=== PATIENT | female | born 1935 | race Caucasian/White ===

== ENCOUNTER 2017-02-10 17:24 | Inpatient (IN) | payer MEDICARE, BC ==
--- NOTE | 2017-02-10 20:01 | ED Physician Documentation ---
PD HPI SYNCOPE - Stated complaint Stated Complaint: DIZZINESS.LEG WEAKNESS - Chief complaint Chief Complaint: General - History obtained from History obtained from: Patient - History of Present Illness Witnessed: Unwitnessed Timing - onset: Yesterday (she got up from sitting in chair and says that it felt like her "legs gave out", feeling like both legs, but left one felt weaker. Struck left chest on furniture, with bruising there. Since then has feeling of "listing" to the left as she walks, and has feeling of left cheek numbness. No noted focal weakness per se. Did not strike head.) Duration: Other (she feels that her legs gave out (both versus left) and she fell. Does not feel that she passed out. Did not feel lightheaded.) Preceding symptoms: No: Headache, Chest pain, Palpitations, Abdominal pain, Nausea / vomiting, Light headed Associated symptoms: Chest pain (struck left lateral chest when fell, with pain there and bruising.). No: Headache, Palpitations Contributing factors: Just stood up. No: Recent med change Injury occurred: Fell (struck left chest) Similar symptoms before: Has not had sx before Recently seen: Not recently seen Review of Systems Constitutional: reports: Fever, Chills Eyes: reports: Decreased vision (from her prior cataract surgery, no acute process.). denies: Loss of vision Nose: denies: Rhinorrhea / runny nose, Congestion Throat: denies: Sore throat Cardiac: denies: Chest pain / pressure, Palpitations, Pedal edema, Calf pain Respiratory: denies: Dyspnea, Cough GI: denies: Abdominal Pain, Nausea, Vomiting, Diarrhea, Bloody / black stool Skin: denies: Rash, Lesions Musculoskeletal: denies: Neck pain, Back pain Neurologic: reports: Other (off balance with walking). denies: Focal weakness, Difficulty speaking, Altered mental status, Headache, Head injury PD PAST MEDICAL HISTORY - Past Medical History Past Medical History: Yes Cardiovascular: None Respiratory: None Neuro: None Endocrine/Autoimmune: None GI: Chronic constipation : None HEENT: None Psych: None, Depression, Anxiety Musculoskeletal: Chronic back pain Derm: None - Past Surgical History Past Surgical History: Yes General: Colonoscopy HEENT: Cataracts - Present Medications Home Medications: Ambulatory Orders Medication Instructions Recorded Confirmed Calcium Citrate/Magnesium/D3 1 each PO DAILY 04/15/16 04/16/16 [Calcium Citrate Chewable Wafer] Cyanocobalamin (Vitamin B-12) 500 mcg PO DAILY 04/15/16 04/16/16 [Vitamin B-12] - Allergies Allergies/Adverse Reactions: Allergies Allergy/AdvReac Type Severity Reaction Status Date / Time No Known Drug Allergies Allergy Verified 02/10/17 17:37 - Social History Does the pt smoke?: No Smoking Status: Never smoker Does the pt drink ETOH?: No Does the pt have substance abuse?: No - Family History Family history: denies: CVA, Cerebral aneurysm - Immunizations Immunizations are current?: Yes - POLST Patient has POLST: No PD ED PE NORMAL - Vitals Vital signs reviewed: Yes - General General: Alert and oriented X 3, No acute distress, Well developed/nourished - HEENT HEENT: PERRL, EOMI, Moist mucous membranes, Pharynx benign - Neck Neck: Supple, no meningeal sign, No adenopathy, No JVD, No bruit - Cardiac Cardiac: RRR, No murmur - Respiratory Respiratory: Clear bilaterally - Abdomen Abdomen: Soft, Non tender - Female Female : Deferred - Rectal Rectal: Deferred - Back Back: No CVA TTP - Derm Derm: Normal color, Warm and dry - Extremities Extremities: Normal ROM s pain, No edema, No calf tenderness / cord - Neuro Neuro: Alert and oriented X 3, human resources benefits coordinator 2-12 intact, No motor deficit, No sensory deficit, Normal speech - Psych Psych: Normal mood, Normal affect PD ED PE EXPANDED - Neuro Neuro: CNII-XII intact, PERRL, Normal speech. No: Weakness, Abnormal sensation , Aphasia Results - Vitals Vitals: Vital Signs - 24 hr 02/10/17 02/10/17 02/10/17 17:32 18:55 20:00 Temperature 36.6 C 36.8 C 36.5 C Heart Rate 90 79 71 Respiratory 18 16 15 Rate Blood Pressure 190/78 H 184/65 H 164/64 H O2 Saturation 98 97 99 02/10/17 02/10/17 21:12 22:34 Temperature 36.9 C 36.8 C Heart Rate 77 72 Respiratory 15 15 Rate Blood Pressure 189/72 H 193/63 H O2 Saturation 97 97 Oxygen O2 Source Room air - EKG (time done) 22:03 Rate: Rate (enter#) (73) Rhythm: NSR [place]: Normal Intervals: Normal CA QRS: Normal Ischemia: Normal ST segments. No: ST elevation c/w ischemia, ST depression Compare to prior EKG: Old EKG unavailable - Labs Labs: Laboratory Tests 02/10/17 02/10/17 02/10/17 20:39 20:39 20:39 WBC 4.6 L RBC 4.48 Hgb 13.9 Hct 41.1 MCV 91.7 MCH 30.9 MCHC 33.7 RDW 13.5 Plt Count 130 MPV 9.4 Neut # 2.5 Lymph # 1.4 L Pettis # 0.5 Eos # 0.1 Baso # 0.0 Absolute Nucleated RBC 0.00 Nucleated RBCs 0.1 Sodium 138 Potassium 4.2 Chloride 104 Carbon Dioxide 25 Anion Gap 9.0 BUN 17 Creatinine 0.8 Estimated GFR (MDRD) 69 L Glucose 99 Calcium 9.6 Magnesium 2.2 Total Bilirubin 0.8 AST 25 ALT 14 Alkaline Phosphatase 57 Troponin I < 0.04 Total Protein 6.8 Albumin 3.8 Globulin 3.0 Albumin/Globulin Ratio 1.3 Lipase 28 - Rads (name of study) head CT Radiology: Prelim report reviewed (new small infarct right basal ganglia and anterior limb internal capsule. Possibly subacute/old.), EMP read contemporaneously ribs with chest Radiology: Prelim report reviewed (lungs normal. left 9th rib fracture) PD MEDICAL DECISION MAKING - ED course Complexity details: reviewed results (head CT showing new small infarcts that might be old. However her symptoms would be concerning for new infarct. MRI brain would be more definitive and new Dx of infarcts warrants carotid/ECHO studies. ), considered differential, d/w patient, d/w agricultural consultant (Hospitalist) Departure - Departure Disposition: 66 [facility] DC/Xfer Clinical Impression: Accidental fall Qualifiers: Encounter type: initial encounter Qualified Code(s): W19.XXXA - Unspecified fall, initial encounter Left rib fracture Qualifiers: Encounter type: initial encounter Rib fracture type: single rib Fracture type: closed Qualified Code(s): S22.32XA - Fracture of one rib, left side, initial encounter for closed fracture CVA (cerebral vascular accident) Qualifiers: CVA mechanism: unspecified Qualified Code(s): I63.9 - Cerebral infarction, unspecified Condition: Stable Record reviewed to determine appropriate education?: Yes
[2017-02-10] MEDS ORDERED: ACETAMINOPHEN 325 MG TABLET PO STA (20:29)
[2017-02-10] MEDS ORDERED: ACETAMINOPHEN 325 MG TABLET PO ONE (20:35)
[2017-02-10 20:46] LABS: EOSINOPHILS # (AUTO) 0.1 10^3/uL (0.0-0.7); EOSINOPHILS % (AUTO) 2.5 %; HCT - HEMATOCRIT 41.1 % (37.0-47.0); HGB - HEMOGLOBIN 13.9 g/dL (12.0-16.0); LYMPHOCYTES # (AUTO) 1.4 10^3/uL (1.5-3.5); LYMPHOCYTES % (AUTO) 29.8 %; MEAN CORPUSCULAR HEMOGLOBIN 30.9 pg (27.0-31.0); MEAN CORPUSCULAR HGB CONC 33.7 g/dL (32.0-36.0); MEAN CORPUSCULAR VOLUME 91.7 fL (81.0-99.0); MEAN PLATELET VOLUME 9.4 fL (7.9-10.8); MONOCYTES # (AUTO) 0.5 10^3/uL (0.0-1.0); NEUTROPHILS # (AUTO) 2.5 10^3/uL (1.5-6.6); NEUTROPHILS % (AUTO) 55.7 %; NUCLEATED RED BLOOD CELLS AUTO 0.1 /100WBC; RED BLOOD COUNT 4.48 10^6/uL (4.20-5.40); RED CELL DISTRIBUTION WIDTH 13.5 % (12.0-15.0); UNCORRECTED WHITE BLOOD COUNT 4.6 x10^3/uL; WHITE BLOOD COUNT 4.6 x10^3/uL (4.8-10.8)
[2017-02-10 21:00] LABS: ALBUMIN/GLOBULIN RATIO 1.3 (1.0-2.2); BILIRUBIN,TOTAL 0.8 mg/dL (0.2-1.0); CALCIUM 9.6 mg/dL (8.5-10.3); CREATININE 0.8 mg/dL (0.4-1.0); MAGNESIUM 2.2 mg/dL (1.7-2.8); POTASSIUM 4.2 mmol/L (3.5-5.0); TOTAL PROTEIN 6.8 g/dL (6.7-8.2)
--- NOTE | 2017-02-10 21:18 | XRAY Preliminary Report ---
Exam: XR Ribs w/PA Chest LT IMPRESSION: Left ninth rib fracture. [facility] IMPRESSION: Left ninth rib fracture. [facility] SITE ID: [id number]
--- NOTE | 2017-02-10 21:20 | XRAY Report ---
EXAM: LEFT RIB RADIOGRAPHY EXAM DATE: 02/10/2017 09:05 PM. CLINICAL HISTORY: Fall yesterday with left lower ribs bruising. COMPARISON: Chest dated 10/11/2012. TECHNIQUE: 1 view of the chest and 2 views of the ribs. FINDINGS: Bones: Minimally displaced anterior left ninth rib fracture. Osteopenia. Degenerative changes. Lungs: Clear. No effusion or pneumothorax. Mediastinum: Heart and mediastinal contours are unremarkable. Upper lobe vessels not distended. Other: Nonspecific bowel gas pattern. IMPRESSION: Left ninth rib fracture. [facility] Referring Provider Line: [phone] SITE ID: [id number]
--- NOTE | 2017-02-10 21:20 | CT Preliminary Report ---
Exam: CT Head W/O IMPRESSION: Chronic and senescent changes. New small infarcts at the right basal ganglia and anterior limb internal capsule, appear more chronic. [facility] SITE ID: [id number]
--- NOTE | 2017-02-10 21:23 | CT Report ---
EXAM: CT HEAD EXAM DATE: 02/10/2017 08:55 PM. CLINICAL HISTORY: Leg weakness with fall yesterday. COMPARISON: Head CT 10/11/2012. TECHNIQUE: Multiaxial CT images were obtained from the foramen magnum to the vertex. IV contrast: Non e. Reformats: Coronal. In accordance with CT protocol optimization, one or more of the following dose reduction techniques w ere utilized for this exam: automated exposure control, adjustment of mA and/or KV based on patient s ize, or use of iterative reconstructive technique. FINDINGS: Parenchyma: No intraparenchymal hemorrhage. No evidence of mass or midline shift. Vega-white differen tiation is distinct. New small infarcts at the right basal ganglia and anterior limb internal capsule , appear more chronic. Extraaxial Spaces: Normal for age. No subdural or epidural collections identified. Ventricles: The ventricles and cortical sulci are enlarged, consistent with age-related tissue loss. Sinuses: Imaged paranasal sinuses, orbits, and mastoids show no significant abnormality. Bones: No evidence of fracture or calvarial defect. Other: Diffuse chronic microangiopathic white matter changes are evident. IMPRESSION: Chronic and senescent changes. New small infarcts at the right basal ganglia and anterior limb internal capsule, appear more chronic. [facility] Referring Provider Line: [phone] SITE ID: [id number]
[2017-02-10] MEDS ORDERED: ASPIRIN CHEW 81 MG TABLET PO STA (21:51)
[2017-02-10] MEDS ORDERED: ASPIRIN CHEW 81 MG TABLET ONE (21:56)
[2017-02-10] MEDS ORDERED: SODIUM CHLORIDE FLUSH 0.9% 10 ML SYRINGE IVP PRN (23:41)
--- NOTE | 2017-02-11 02:17 | HISTORY & PHYSICAL EXAMINATION ---
DATE OF ADMISSION: 02/10/2017 CHIEF COMPLAINT: Dizziness and leg weakness. HISTORY OF PRESENT ILLNESS: This is an 81-year-old white female who is in very good health, she walks routinely. She only takes a multivitamin and vitamin D with calcium for medications. The patient was standing up from a chair and noticed that her "left leg gave out" which caused her to fall and she hit her left chest area in the left rib cage. She presented to the emergency room [facility] of continued weakness of the left side and numbness of the left face. She also experienced gait ch jocelynn, walking to the left since this happened to her. There was no syncope. She denies any palpitatio ns, chest pain, shortness of breath with this event or ever. She has no past cardiac history or neuro logical. MEDICATIONS AT HOME: As above. ALLERGIES: NONE. SOCIAL HISTORY: She is a nonsmoker, never smoked and drinks no alcohol. FAMILY HISTORY: Negative for diabetes or heart disease. REVIEW OF SYSTEMS: Only as above and negative in all other organ systems. PHYSICAL EXAMINATION: GENERAL: Reveals a white female who is in no distress. VITAL SIGNS: Blood pressure 164/64 and as high as 193/63, pulse is in the 70s in sinus rhythm. She is afebrile. HEENT: Unremarkable. NECK: Shows no JVD or carotid bruits. No thyromegaly. No lymphadenopathy. CHEST: Clear. HEART: Sounds are normal. No murmurs. No heave or gallop. ABDOMEN: Soft with decreased bowel sounds, nontender. EXTREMITIES: No clubbing, cyanosis, or edema. NEUROLOGIC: Shows cranial nerves to be grossly intact. She has normal sensation of the left face comp ared to the right. She has normal strength of the upper extremities to hand scale technician, [id number] and no drift. Her lower extremities have mild weakness of the left foot to plantar flexion, otherwise normal muscle strength throughout and negative Babinskis bilaterally. LABORATORY: Normal BMP and CMP. Troponin is less than 0.04. White blood count 4.6. Normal CBC and dif ferential. There was no INR done or urinalysis done. A chest x-ray was unremarkable. Rib series showe d a left 9th rib fracture. CT scan of the head showed positive bilateral small strokes of different a ges and was reported as such, "chronic and senescent changes. New small infarcts in the right basal g anglia and anterior limb internal capsule, appear more chronic." EKG: Normal sinus rhythm, early transition. IMPRESSION: 1. Stroke with left-sided symptoms. Abnormal head CT with evidence of prior stroke. 2. Hypertension. PLAN: Admit the patient to telemetry to look for atrial fibrillation. Allow for permissive hypertensi on. Start aspirin, which was given in the emergency room. Obtain an echo to rule out cardiac source o f embolus and a carotid Doppler to evaluate for significant carotid stenosis. Obtain cholesterol pane l and treat per guidelines. Continue baby aspirin daily. Increase activity to assess for neurologic i mprovement. JOB #: [id number] EXT JOB #:[id number]
[2017-02-11] MEDS: SODIUM CHLORIDE FLUSH 0.9% 10 ML SYRINGE IVP SCH ×3 (06:20→21:38)
[2017-02-11 07:52] LABS: CHOL/HDL RATIO 2.9 (<4.4); CHOLESTEROL 249 mg/dL; HDL CHOLESTEROL 86 mg/dL; LDL/HDL RATIO 1.8 (<4.4); TRIGLYCERIDES 51 mg/dL; VLDL CHOLESTEROL 10 mg/dL
--- NOTE | 2017-02-11 08:28 | PROVIDER PROGRESS NOTE ---
Subjective - Prog Note Date Prog Note Date: 02/11/17 - Subjective Pt reports feeling: Improved Subjective: pt state she feel much better. she use her left to eat breakfast, not feel weakness or abnormal sensation at her left lower extremity, no headache. She report mild to moderate pain when she move her up chest. She had fall and caused 9th rib fracture Current Medications - Current Medications Current Medications: Active Medications Aspirin (Blanca) 325 mg PO DAILY [facility] Cyanocobalamin (Vitamin B-12) 500 mcg PO DAILY [facility] Enoxaparin Sodium (Lovenox) 40 mg SUBQ DAILY [facility] Famotidine (Pepcid) 20 mg PO DAILY [facility] Calcium Citrate/ (Magnesium/D3) 1 each PO DAILY [facility] Polyethylene Glycol (Miralax) 17 gm PO DAILY [facility] Sodium Chloride (Normal Saline Flush 0.9%) 10 ml IVP PRN PRN PRN Reason: NEEDED PER PROVIDER ORDERS Sodium Chloride (Normal Saline Flush 0.9%) 10 ml IVP Q8HR CHRIS Last Admin: 02/11/17 06:20 Dose: 10 ml Calcium Citrate/Magnesium/D3 [Calcium Citrate Chewable Wafer] 1 each PO DAILY Cyanocobalamin (Vitamin B-12) [Vitamin B-12] 500 mcg PO DAILY 04/15/16 Objective - Vital Signs/Intake & Output Reviewed Vital Signs: Yes Vital Signs: Vital Signs x48h Temp Pulse Resp BP Pulse Ox 02/11/17 07:19 36.7 C 73 20 146/53 H 97 02/11/17 06:00 36.7 C 68 16 164/59 H 96 02/11/17 01:05 36.3 C L 73 17 187/84 H 99 - Objective General Appearance: positive: No acute distress, Alert. negative: Lethargic Eyes Bilateral: positive: Normal inspection, PERRL. negative: No lid inflammation, Conjunctivae nml ENT: positive: ENT inspection nml, Pharynx nml, No signs of dehydration. negative: Purulent nasal drainage, Pharyngeal erythema Neck: positive: Nml inspection, Thyroid nml, Trachea midline. negative: Thyromegaly, Lymphadenopathy (R), Lymphadenopathy (L), Stiff neck, Swelling/ bruising Respiratory: positive: Chest non-tender, No respiratory distress, Breath sounds nml. negative: Wheezes, Rales, Rhonchi Cardiovascular: positive: Regular rate & rhythm, No murmur, No gallop. negative : Tachycardia, Bradycardia, Systolic murmur, Diastolic murmur Peripheral Pulses: 2+ Radial (R), 2+ Radial (L), 2+ Dorsalis pedis (R), 2+ Dorsalis pedis (L) Abdomen: positive: Non-tender, Nml bowel sounds, No distention. negative: Tenderness, Guarding, Rebound Back: positive: Nml inspection. negative: CVA tenderness (R), CVA tenderness (L ) Skin: positive: Color nml, No rash, Warm, Dry. negative: Cyanosis, Diaphoresis , Pallor Extremities: positive: Non-tender, Nml appearance, Other. negative: Pedal edema , Rick's sign/cords Neurologic/Psychiatric: positive: Oriented x3, Sensation nml, Mood/affect nml, Other (slight weakness at both upper and lower left extremities). negative: Facial droop, Slurred/abnml speech, Depressed mood/affect - Lab Results Fish Bones: 02/10/17 20:39 02/10/17 20:39 Other Labs: Lab Results x24hrs 02/11/17 Range/Units 07:25 Triglycerides 51 ( - 149) mg/dL Cholesterol 249 H ( - 199) mg/dL LDL Cholesterol, Calc 153 H ( - 129) mg/dL VLDL Cholesterol 10 mg/dL HDL Cholesterol 86 (60 - ) mg/dL LDL/HDL Ratio 1.8 (<4.4) Cholesterol/HDL Ratio 2.9 (<4.4) Assessment/Plan - Problem List (1) CVA (cerebral vascular accident) Impression: CT of brain reveals new small infarction at right brain. MRI, US of carotid, ECHO are pending. Asprinin 325mg daily test lipid panel PT/OT pt is eating breakfast, it appear no issue. Pt's speech is normal Qualifiers: CVA mechanism: unspecified Qualified Code(s): I63.9 - Cerebral infarction, unspecified (2) Accidental fall Impression: pt was found left 9th rib fracture from fall, pain control fall precaution pt denies other injuries or pain Qualifiers: Encounter type: initial encounter Qualified Code(s): W19.XXXA - Unspecified fall, initial encounter (3) Left rib fracture Impression: pain control, fall precaution. Qualifiers: Encounter type: initial encounter Rib fracture type: single rib Fracture type: closed Qualified Code(s): S22.32XA - Fracture of one rib, left side, initial encounter for closed fracture
[2017-02-11] MEDS ORDERED: D3 PO SCH (09:00)
[2017-02-11] MEDS ORDERED: CALCIUM CITRATE PO SCH (09:00)
[2017-02-11] MEDS ORDERED: MAGNESIUM PO SCH (09:00)
[2017-02-11] MEDS: POLYETHYLENE GLYCOL 3350 17 GM PACKET PO SCH (09:20)
[2017-02-11] MEDS: CYANOCOBALAMIN 500 MCG TABLET PO SCH (09:20)
[2017-02-11] MEDS: ASPIRIN 325 MG TABLET PO SCH (09:21)
[2017-02-11] MEDS: FAMOTIDINE 20 MG TABLET PO SCH (09:21)
[2017-02-11] MEDS: ENOXAPARIN 40 MG/0.4 ML SYRINGE SUBQ SCH (09:22)
[2017-02-11] MEDS ORDERED: GADOBUTROL 7.5 MMOL/7.5 ML VIAL IVP ONE (11:24)
--- NOTE | 2017-02-11 12:53 | MRI Preliminary Report ---
Exam: MRI Brain W/WO Impression: Acute to early subacute, nonhemorrhagic, lacunar type infarction right [place] radiata as described. SITE ID: [id number]
--- NOTE | 2017-02-11 15:32 | MRI Report ---
MRI BRAIN WITHOUT AND WITH CONTRAST INDICATION: 81-year-old female with episode of sudden, left-sided weakness yesterday. Please assess. COMPARISON: Head CT 02/10/2017. TECHNIQUE: 1. T1 sagittal and fat-saturated T2 coronal. 2. Axial T1 MP RAGE, FLAIR, T2, T2*, and DWI. 3. 5.5 mL IV Gadavist. T1 3-D MP RAGE axial. FINDINGS: There is generalized cerebral and cerebellar volume loss with associated ex vacuo enlargement of the third and lateral ventricles. The degree of volume loss is considered within normal limits for stated age. A mild amount of white matter disease is identified in the supratentorial brain, manifested as small T2 hyperintensities that are scattered throughout the periventricular, deep, and subcortical white ma tter bilaterally. A frontoparietal distribution predominates. Flow voids are demonstrated in the main intracranial arteries. There is a well-defined focus of diffusion restriction, extending up from posterolateral right putame n into the right strick[place] radiata and tail of right caudate nucleus. It measures up to about 1.5 x 1.4 cm in maximal dimension. It demonstrates well-defined T2 FLAIR hyperintensity. In addition, there is moderate T1 hypointensity associated with the lesion. The findings are consistent with acute to early subacute lacunar-type infarction. No evidence of complicating hemorrhage on T2*GRE sequence. No isabel tional foci of diffusion restriction are demonstrated. No enhancing intracranial space-occupying mass lesion is demonstrated. No pathologic meningeal or aircraft parts assembler nial nerve enhancement is identified. There is normal intravascular contrast enhancement in the dural venous sinuses and deep venous structures. Limited assessment of the orbits reveals no gross pathology. Changes of previous ocular lens extracti on are demonstrated. There is mild mucosal thickening in a few ethmoid air cells and in the left maxillary sinus. The para nasal sinuses are otherwise clear. No significant mastoid or middle ear effusion is demonstrated. IMPRESSION: Acute to early subacute, nonhemorrhagic, lacunar-type infarction right strick[place] radiata as described. Critical result: The call report system was activated on 02/11/2017 at 12:12 PM. Tatum, the nurse caring for the patie nt, paged Dr. Baker at 12:23 PM. The physician caring for this patient was not available to receive a preliminary report for this exam ination. For this reason, a preliminary report was given to Tatum (RN caring for the patient) on 01/14 at 12:49 PM. Referring Provider Line: [phone] SITE ID: [id number]
[2017-02-11] MEDS ORDERED: ATORVASTATIN 10 MG TABLET PO SCH (21:00)
[2017-02-12] MEDS: SODIUM CHLORIDE FLUSH 0.9% 10 ML SYRINGE IVP SCH ×2 (05:29→13:40)
--- NOTE | 2017-02-12 06:52 | Ultrasound Report ---
CAROTID DUPLEX: 02/11/2017 CLINICAL INDICATION: CVA. TECHNIQUE: Real-time sonographic vascular imaging was performed by the chief lifestyle officer through the carotid arteries utilizing both color-flow and Doppler spectral analysis. Multiple personal banking representative static images were saved for review. Vessel PSV cm/sec 2D Plaque Estimate % ICA/CCA PSV EDV cm/sec % Stenosis RCCA Prox 91 -- RCCA Dist 64 1 RECA 61 -- RT BULB 64 -- 1 1 IHSAN Prox 50 -- 0.78 8 IHSAN Mid 74 -- 1.16 18 IHSAN Dist 126 -- 1.97 21 RVA 61 RVA flow direction: Antegrade. Vessel PSV cm/sec 2D Plaque Estimate % ICA/CCA PSV EDV cm/sec % Stenosis LCCA Prox 98 -- LCCA Dist 67 3 LECA 64 -- LFT BULB 61 -- 1.01 1 LICA Prox 47 -- 0.7 10 LICA Mid 73 -- 1.09 12 LICA Dist 111 -- 1.66 21 LVA 60 LVA flow direction: Antegrade. Velocity criteria are extrapolated from diameter data as defined by the Society of Radiologists in Ultrasound Consensus Conference Radiology 2003; 229; 340-346. Degree of Stenosis % ICA PSV cm/sec Plaque Estimate % ICA/CCA RSV Ratio ICA EDV cm/sec Normal < 125 None < 2.0 < 40 <50 < 125 < 50 < 2.0 < 40 50-69 125 - 130 >/= 50 2.0 - 4.0 40 - 100 >/= 70 but less than near occlusion > 230 >/= 50 > 4.0 > 100 Near occlusion High, low, or undetectable Visible lumen Variable Variable Total occlusion Undetectable No detectable lumen Not applicable Not applicable FINDINGS RIGHT: There is minimal plaquing in the right carotid bifurcation, without evidence of a focal hemodynamically significant stenosis. LEFT: There is minimal plaquing in the left carotid bifurcation, without evidence of a focal hemodynamically significant carotid stenosis. The vertebral arteries demonstrate antegrade flow bilaterally. IMPRESSION: NO EVIDENCE OF A FOCAL HEMODYNAMICALLY SIGNIFICANT CAROTID STENOSIS. MTDD
[2017-02-12] MEDS: ASPIRIN 325 MG TABLET PO SCH (08:21)
[2017-02-12] MEDS: POLYETHYLENE GLYCOL 3350 17 GM PACKET PO SCH (08:22)
[2017-02-12] MEDS: FAMOTIDINE 20 MG TABLET PO SCH (08:22)
[2017-02-12] MEDS: CYANOCOBALAMIN 500 MCG TABLET PO SCH (08:22)
[2017-02-12] MEDS: ENOXAPARIN 40 MG/0.4 ML SYRINGE SUBQ SCH (08:22)
[2017-02-12] MEDS ORDERED: CALCIUM CARBONATE CHEW 500 MG TABLET PO SCH (09:00)
--- NOTE | 2017-02-12 12:19 | Discharge Plan ---
Discharge Plan Disposition: 01 Home, Self Care Condition: Stable Prescriptions: Aspirin 325 mg PO DAILY #90 tablet Atorvastatin [Lipitor] 40 mg PO QPM #30 tablet Diet: Regular Activity Restrictions: Activity as Tolerated Shower Restrictions: No Driving Restrictions: No Weight Bearing: Full Weight No Smoking: If you smoke, Please STOP! Call for help.
[2017-02-12 12:31] VITALS: BP 175/58
--- NOTE | 2017-02-12 13:33 | DISCHARGE SUMMARY ---
Discharge Summary Admit Date: 02/10/17 Discharge Date: 02/12/17 Discharging Provider: Adelso Alejandro PA-C Condition at Discharge: Stable Discharge Disposition: 01 Home, Self Care - DIAGNOSES Admission Diagnoses: Acute CVA with abnormal findings on CT scan Fall with injury Discharge Diagnoses with Status of Each Condition: (1) CVA (cerebral vascular accident) Impression: CT of brain reveals new small infarction at right brain. MRI with early acute to subacute, nonhemorrhagic, lacunar type infarction right strickland radiata. ASA 325 MG daily Lipitor 40 mg nightly (2) Ground level fall Secondary to CVA Resulting in Rib fracture (3) Left rib fracture Secondary to fall from weakness related to CVA Pain controlled No respiratory issues - HPI History of Present Illness: PT was standing from her chair when she had left leg give out. She fell to the ground hitting her chest on the left along edge of a table. She came to the ED due to continued left sided weakness and and facial numbness. She denies LOC. - HOSPITAL COURSE Hospital Course: PT was admitted to for further optservation and management. MRI brain was performed with evidence of acute to subacute lacunar infarct. Caotid duplex was negative for hemodynamically significant disease. She recovered well without residual weakness or dysphasia. She was able to eat using her left hand. Pain in the left chest was controlled without severe breakthrough. She was started on ASA durign hospitalization for CVA risk reduction. Lipitor was also initiated for risk reduction. - ALLERGIES Allergies/Adverse Reactions: Allergies Allergy/AdvReac Type Severity Reaction Status Date / Time No Known Drug Allergies Allergy Verified 02/10/17 17:37 - MEDICATIONS Home Medications: Ambulatory Orders Medication Instructions Recorded Confirmed Calcium Carbonate [Tums (Calcium 500 mg PO DAILY 02/11/17 02/11/17 Carbonate 500mg)] Multivitamin [Multiple Vitamins] 1 each PO DAILY 02/11/17 02/11/17 Aspirin 325 mg PO DAILY #90 tablet 02/12/17 Atorvastatin [Lipitor] 40 mg PO QPM #30 tablet 02/12/17 - PHYSICAL EXAM AT DISCHARGE General Appearance: positive: No acute distress, Alert Eyes Bilateral: positive: Normal inspection, PERRL, EOMI ENT: positive: No signs of dehydration Neck: positive: No JVD Respiratory: positive: No respiratory distress, Breath sounds nml Cardiovascular: positive: Regular rate & rhythm, No murmur Peripheral Pulses: positive: 2+ Abdomen: positive: Non-tender, Nml bowel sounds Back: positive: Other (Left lateral rib pain) Skin: positive: Warm, Dry Extremities: positive: Non-tender, No pedal edema Neurologic/Psychiatric: positive: Oriented x3 - LABS Result Diagrams: 02/10/17 20:39 02/10/17 20:39 - DIAGNOSTIC IMAGING Diagnostic Imaging Results: Final report reviewed - FOLLOW UP Follow Up: PT will establish with PCP and follow-up within 1 week - TIME SPENT Time Spent in Discharge (Minutes): 30 (>30 minutes )
== END 2017-02-12 13:41 | disposition home or self-care (01) | DRG 65 ==
LOC: ED 17:24 → MS2 23:41
PROVIDERS: ADMIT Internal Medicine; ATTEND Physician Assistant
DX: I63.8 Other cerebral infarction (principal); I63.9 Cerebral infarction, unspecified; G81.90 Hemiplegia, unspecified affecting unspecified side; Z82.3 Family history of stroke; S22.32XA Fracture of one rib, left side, initial encounter for closed fracture; R29.810 Facial weakness; W18.39XA Other fall on same level, initial encounter
CPT/HCPCS: 36415; 70450; 70553; 80053; 80061; 83690; 83735; 84484; 85025; 93005; 93306; 93880; 99283; 99284; 99285

== ENCOUNTER 2017-05-19 08:44 | Outpatient (CLI) | payer MEDICARE, BC ==
[2017-05-19 11:40] LABS: ALBUMIN/GLOBULIN RATIO 1.6 (1.0-2.2); BILIRUBIN,TOTAL 0.9 mg/dL (0.2-1.0); BUN - BLOOD UREA NITROGEN 12 mg/dL (6-20); CALCIUM 9.3 mg/dL (8.5-10.3); CARBON DIOXIDE - CO2 24 mmol/L (21-32); CHLORIDE 106 mmol/L (101-111); CHOL/HDL RATIO 1.8 (<4.4); CHOLESTEROL 182 mg/dL; CREATININE 0.9 mg/dL (0.4-1.0); GFR - MDRD 60 (>89); GLUCOSE 89 mg/dL (70-100); HDL CHOLESTEROL 99 mg/dL; LDL/HDL RATIO 0.7 (<4.4); POTASSIUM 3.9 mmol/L (3.5-5.0); SODIUM 139 mmol/L (135-145); TOTAL PROTEIN 6.4 g/dL (6.7-8.2); TRIGLYCERIDES 55 mg/dL; VLDL CHOLESTEROL 11 mg/dL
== END 2017-05-19 08:45 | disposition home or self-care (01) ==
LOC: LAB.F 08:44
PROVIDERS: ATTEND Physician Assistant Medical
DX: E78.5 Hyperlipidemia, unspecified (principal); I63.9 Cerebral infarction, unspecified
CPT/HCPCS: 36415; 80053; 80061

== ENCOUNTER 2020-10-18 11:22 | Outpatient (CLI) | payer MEDICARE, BC | END 2020-10-18 11:23 | disposition EMS.NT | LOC: EMS 11:22 | DX: Z03.89 Encounter for observation for other suspected diseases and conditions ruled out (principal) ==

== ENCOUNTER 2021-06-25 08:22 | Outpatient (CLI) | payer MEDICARE, BC ==
[2021-06-25 14:06] LABS: BASOPHILS % (AUTO) 0.8 %; EOSINOPHILS # (AUTO) 0.2 10^3/uL (0.0-0.7); EOSINOPHILS % (AUTO) 4.7 %; HCT - HEMATOCRIT 39.3 % (37.0-47.0); HGB - HEMOGLOBIN 13.1 g/dL (12.0-16.0); LYMPHOCYTES # (AUTO) 1.9 10^3/uL (1.5-3.5); LYMPHOCYTES % (AUTO) 38.1 %; MEAN CORPUSCULAR HEMOGLOBIN 31.6 pg (27.0-31.0); MEAN CORPUSCULAR HGB CONC 33.3 g/dL (32.0-36.0); MEAN CORPUSCULAR VOLUME 94.7 fL (81.0-99.0); MEAN PLATELET VOLUME 12.2 fL (7.9-10.8); MONOCYTES # (AUTO) 0.6 10^3/uL (0.0-1.0); MONOCYTES % (AUTO) 13.1 %; NEUTROPHILS # (AUTO) 2.1 10^3/uL (1.5-6.6); NEUTROPHILS % (AUTO) 43.1 %; PLT - PLATELET COUNT 139 10^3/uL (130-450); RED BLOOD COUNT 4.15 10^6/uL (4.20-5.40); RED CELL DISTRIBUTION WIDTH 13.2 % (12.0-15.0); WHITE BLOOD COUNT 4.9 x10^3/uL (4.8-10.8)
[2021-06-25 14:39] LABS: ALBUMIN 3.8 g/dL (3.2-5.5); ALBUMIN/GLOBULIN RATIO 1.5 (1.0-2.2); ALKALINE PHOSPHATASE 51 IU/L (42-121); ALT ALANINE AMINOTRANSFERASE 12 IU/L (10-60); AST ASPARTATE AMINOTRANSFERASE 20 IU/L (10-42); BUN - BLOOD UREA NITROGEN 23 mg/dL (6-20); CALCIUM 9.3 mg/dL (8.5-10.3); CARBON DIOXIDE - CO2 26 mmol/L (21-32); CHLORIDE 104 mmol/L (101-111); CHOL/HDL RATIO 3.2 (<4.4); CHOLESTEROL 254 mg/dL; CREATININE 0.9 mg/dL (0.4-1.0); GFR - MDRD 59 (>89); GLUCOSE 96 mg/dL (70-100); HDL CHOLESTEROL 79 mg/dL; LDL CHOLESTEROL,CALCULATED 159 mg/dL; SODIUM 139 mmol/L (135-145); TOTAL PROTEIN 6.3 g/dL (6.7-8.2); TRIGLYCERIDES 80 mg/dL; VLDL CHOLESTEROL 16 mg/dL
== END 2021-06-25 08:23 | disposition home or self-care (01) ==
LOC: LAB.S 08:22
PROVIDERS: ATTEND Internal Medicine
DX: I10 Essential (primary) hypertension (principal)
CPT/HCPCS: 36415; 80053; 80061; 83721; 85025

== ENCOUNTER 2023-06-03 10:01 | Outpatient (CLI) | payer MEDICARE, BC ==
[2023-06-03 14:45] LABS: BASOPHILS # (AUTO) 0.1 10^3/uL (0.0-0.1); BASOPHILS % (AUTO) 1.1 %; EOSINOPHILS # (AUTO) 0.2 10^3/uL (0.0-0.7); EOSINOPHILS % (AUTO) 4.8 %; HCT - HEMATOCRIT 40.2 % (37.0-47.0); HGB - HEMOGLOBIN 12.7 g/dL (12.0-16.0); LYMPHOCYTES # (AUTO) 1.6 10^3/uL (1.5-3.5); LYMPHOCYTES % (AUTO) 34.4 %; MEAN CORPUSCULAR HEMOGLOBIN 30.5 pg (27.0-31.0); MEAN CORPUSCULAR HGB CONC 31.6 g/dL (32.0-36.0); MEAN CORPUSCULAR VOLUME 96.6 fL (81.0-99.0); MEAN PLATELET VOLUME 12.4 fL (7.9-10.8); MONOCYTES # (AUTO) 0.6 10^3/uL (0.0-1.0); MONOCYTES % (AUTO) 13.1 %; NEUTROPHILS # (AUTO) 2.1 10^3/uL (1.5-6.6); NEUTROPHILS % (AUTO) 46.4 %; PLT - PLATELET COUNT 164 10^3/uL (130-450); RED BLOOD COUNT 4.16 10^6/uL (4.20-5.40); RED CELL DISTRIBUTION WIDTH 13.4 % (12.0-15.0); WHITE BLOOD COUNT 4.6 x10^3/uL (4.8-10.8)
[2023-06-03 15:27] LABS: ALBUMIN 4.1 g/dL (3.2-5.5); ALBUMIN/GLOBULIN RATIO 1.7 (1.0-2.2); BILIRUBIN,TOTAL 0.7 mg/dL (0.2-1.0); CALCIUM 9.6 mg/dL (8.5-10.3); POTASSIUM 4.2 mmol/L (3.5-4.5); TOTAL PROTEIN 6.5 g/dL (6.4-8.9)
== END 2023-06-03 10:02 | disposition home or self-care (01) ==
LOC: LAB.S 10:01
PROVIDERS: ATTEND Internal Medicine
DX: I10 Essential (primary) hypertension (principal); Z79.899 Other long term (current) drug therapy; E78.5 Hyperlipidemia, unspecified
CPT/HCPCS: 36415; 80053; 85025

== ENCOUNTER 2023-07-19 15:33 | Outpatient (CLI) | payer MEDICARE, BC ==
--- NOTE | 2023-07-19 17:24 | XRAY Report ---
PROCEDURE: Lumbar Spine 2-3V INDICATIONS: STRAIN OF LOWER BACK TECHNIQUE: 3 views of the lumbar spine were acquired. COMPARISON: None. FINDINGS: Bones: 5 [id number] vertebrae are present. There is straightening of normal lumbar lordosis. 5 mm retrolisthesis of L2 on L3 and 3 mm anterolisthesis of L4 on L5 is seen. Chronic appearing superi or endplate compression deformity at L1 level is seen with up to 25% loss of L1 vertebral body height anteriorly. No suspicious bony lesions. Soft tissues: Overlying bowel gas pattern is normal. No suspicious soft tissue calcifications. IMPRESSION: Chronic appearing anterior wedge compression deformity at L1 level with up to 25% loss of L1 vertebra l body height anteriorly. No definite acute compression fracture. 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 Grade 1 spondylolisthesis at L2-3 and L4-5 levels as above. Reviewed by: Eliseo Varghese MD on 07/19/2023 5:22 PM PST Approved by: Eliseo Varghese MD on 07/19/2023 5:22 PM PST Station ID: [id number]
== END 2023-07-19 23:59 | disposition home or self-care (01) ==
LOC: DI.S 15:33
PROVIDERS: ATTEND Emergency Medicine
DX: S39.012A Strain of muscle, fascia and tendon of lower back, initial encounter (principal); M48.56XA Collapsed vertebra, not elsewhere classified, lumbar region, initial encounter for fracture; M51.36 Other intervertebral disc degeneration, lumbar region; M43.16 Spondylolisthesis, lumbar region

== ENCOUNTER 2023-07-21 15:25 | Outpatient (CLI) | payer MEDICARE, BC | END 2023-07-21 15:26 | disposition critical access hospital (66) | LOC: EMS 15:25 | DX: M54.50 Low back pain, unspecified (principal); M53.3 Sacrococcygeal disorders, not elsewhere classified | CPT/HCPCS: A0425; A0427 ==

== ENCOUNTER 2023-07-21 16:04 | Emergency (ER) | payer MEDICARE, BC ==
[2023-07-21] MEDS: DEXAMETHASONE 10 MG/ML VIAL IV STA (16:28)
[2023-07-21] MEDS: HYDROmorphone 0.5 MG/0.5 ML SYRINGE IVP STA (16:28)
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
[2023-07-21 18:31] VITALS: BP 160/60; O2SAT 97
== END 2023-07-21 18:26 | disposition home or self-care (01) ==
LOC: EDUNIT# → ED 16:04
DX: M54.41 Lumbago with sciatica, right side (principal); M48.56XA Collapsed vertebra, not elsewhere classified, lumbar region, initial encounter for fracture
CPT/HCPCS: 96374; 99284; J1170

== ENCOUNTER 2023-07-28 14:51 | Outpatient (CLI) | payer MEDICARE, BC ==
--- NOTE | 2023-07-29 09:44 | XRAY Report ---
PROCEDURE: Sacrum/Coccyx INDICATIONS: PAIN IN JOINT,PELVIS/THIGH TECHNIQUE: 2 views of the sacrum and coccyx acquired. COMPARISON: None. FINDINGS: Bones: There is osteopenia. No fracture Or dislocation. No suspicious bony lesions. There is mild h ip and sacroiliac joint degeneration. Mild to moderate degenerative disc and facet disease in the low er lumbar spine. Question a sclerotic bone lesion in the right pelvis. Soft tissues: Visualized bowel gas pattern is normal. No suspicious soft tissue densities. Large a mount of stool in colon. IMPRESSION: 1. No definitive acute abnormalities. Because of osteopenia, visualization of bones are compromise. I f clinical symptoms persist, consider CT or MRI for further evaluation. 2. Question a sclerotic lesion in the right pubis. If there is personal history of cancer, consider w hole body bone scan. 3. Mild degenerative joint disease. 4. Spondylitic changes in the lower lumbar spine. Reviewed by: Constantine Burks MD on 07/29/2023 9:43 AM PST Approved by: Constantine Burks MD on 07/29/2023 9:43 AM PST Station ID: [id number]
--- NOTE | 2023-07-29 11:22 | XRAY Report ---
PROCEDURE: Pelvis 3+V INDICATIONS: PAIN IN JOINT,PELVIS/THIGH TECHNIQUE: 3 view(s) of the pelvis acquired. COMPARISON: X-ray sacrum/coccyx, 07/28/2023. X-ray pelvis, 10/12/2015 FINDINGS: Bones: No fractures or dislocations. No suspicious bony lesions. Mild osteoarthritic changes in hip s and sacroiliac joints. There is a sclerotic lesion in the right pubis adjacent to the pubic symphys is, unchanged since 10/11/2012. Soft tissues: Visualized bowel gas pattern is normal. No suspicious soft tissue calcifications. IMPRESSION: 1. No acute bony abnormality. 2. Mild osteoarthritis. 3. Stable sclerotic lesion in the right pubis adjacent to the pubic symphysis, likely benign such as a bone island. Reviewed by: Constantine Burks MD on 07/29/2023 11:21 AM PST Approved by: Constantine Burks MD on 07/29/2023 11:21 AM PST Station ID: [id number]
== END 2023-07-28 14:52 | disposition home or self-care (01) ==
LOC: DI.S 14:51
PROVIDERS: ATTEND Internal Medicine
DX: M16.0 Bilateral primary osteoarthritis of hip (principal); M47.898 Other spondylosis, sacral and sacrococcygeal region; M47.816 Spondylosis without myelopathy or radiculopathy, lumbar region; M51.36 Other intervertebral disc degeneration, lumbar region; M89.9 Disorder of bone, unspecified; M85.88 Other specified disorders of bone density and structure, other site